=== PATIENT | female | born 1940 | race Caucasian/White ===

== ENCOUNTER 2021-11-05 02:38 | Emergency (ER) | payer OTHER, SELFPAY ==
[2021-11-05 02:39] VITALS: BP 151/95; PULSE 63; RESP 18; TEMP 36.8; O2SAT 98; BMI 24.4
--- NOTE | 2021-11-05 02:48 | CRLHL7_ITS ---
For Patients: As a result of the Century Cures Act, medical imaging exams and procedure reports are released immediately into your electronic medical record. You may view this report before your referring provider. If you have questions, please contact your health care provider. INDICATION: Chest pain. TECHNIQUE: Chest 2 views. COMPARISON: None. FINDINGS: Cardiovascular and mediastinum: Heart size and vasculature are normal in caliber and appearance. Lungs and pleural spaces: Lungs are clear. No sign of infiltrate or mass. No sign of pleural effusion. No pneumothorax. Bones and soft tissues: No significant findings. IMPRESSION: No acute or significant findings. Dictated by Slim Gomes MD @ 11/05/2021 3:44:15 AM (Electronically Signed)
--- NOTE | 2021-11-05 03:13 | ED.CHESTPAIN ---
HPI - Chest Pain General Time Seen by Provider: 03:13 Date Seen: 11/05/21 Chief Complaint: Chest Pain Stated Complaint: Chest Pain Time Seen by Provider: 11/05/21 02:41 Source: patient Mode of arrival: EMS Limitations: no limitations History of Present Illness HPI narrative: Patient is a very nice 81-year-old female presents by EMS after approximately 4-5 hours of chest pain. Came on when after she went to bed, described bilaterally in both the right and left side of her chest. Not so bad, but enough to worry your in the context of previous PTCA 5 years ago and recent hospitalization in early part of September at [facility] for extensive left leg DVT that required both anticoagulation and placement of IVC filter. She took nitroglycerin once at approximately 10:30 p.m. found this did not do anything for her pain, did not call the ambulance till proximally 2am and once the ambulance came to her place her pain went away. She had been having trouble with some nausea after starting the Eliquis, this improved with the Pepcid. She notes that she has taken both her Eliquis and her aspirin, she is due to meet with cardiology and also Interventional Radiology coming up here shortly. MD complaint: chest heaviness Pertinent past history: coronary artery disease and [employer] Onset (ago): hour(s) (5 hrs ago ) Prior episodes: No Onset: during rest Pain location: left chest, right chest and lateral Pain radiation: none Severity: mild Quality: aching and heaviness Relieving factors: nothing and nitroglycerin (took ntg once, did not help ) Exacerbating factors: nothing Context: history of DVT/PE Treatment prior to arrival: nitroglycerin Risk Factors Thoracic aortic dissection risk factors: none Pulmonary embolism risk factors: history of deep vein thrombosis and presence of IVC filter Related Data On Oral Contraceptives: No Home Medications Medication Instructions Recorded Confirmed citalopram 40 mg tablet mg 11/05/21 evolocumab 140 mg/mL subcutaneous mg SUBCUT 11/05/21 pen injector (Dani Deleon) ezetimibe 10 mg tablet mg 11/05/21 fluorouracil 5 % topical cream applic TOPICAL 11/05/21 levothyroxine 112 mcg tablet mcg 11/05/21 lisinopril 5 mg tablet mg 11/05/21 metoprolol succinate 25 mg mg PO 07/25/22 tablet,extended release 24 hr nitroglycerin 0.4 mg sublingual mg 11/05/21 tablet Allergies Allergy/AdvReac Type Severity Reaction Status Date / Time No Known Drug Allergies Allergy Verified 11/05/21 02:43 Review of Systems Status of ROS Reports: 10 or more systems reviewed and unremarkable except as noted in History and below [facility] Social History Smoking Status: Current every day smoker How often do you have a drink containing alcohol: 2-3 times a week How many standard drinks containing alcohol do you have on a typical day: 1 or 2 How often do you have six or more drinks on one occasion: Never AUDIT-C Alcohol total score: 3 Non-prescribed substance use: denies use Exam Const Vital Signs, click to edit/add: Vital Signs - 24 hr 11/05/21 02:39 11/05/21 03:26 11/05/21 04:00 Temperature 98.3 F Pulse Rate [Left Pulse Oximeter] 63 64 62 Respiratory Rate 18 16 16 Blood Pressure [Right Upper Arm] 151/95 H 157/78 H 149/87 H Pulse Oximetry 98 96 93 11/05/21 05:00 11/05/21 06:00 Temperature Pulse Rate [Left Pulse Oximeter] 69 67 Respiratory Rate 16 16 Blood Pressure [Right Upper Arm] 143/97 H 151/88 H Pulse Oximetry 99 98 Documenting provider has reviewed patient's vital signs: yes Common normals: no apparent distress, average body habitus, oriented x3, no limitations, healthy appearing and alert General appearance: comfortable, well kempt and well developed [facility] Common normals: normocephalic, head/scalp atraumatic, hearing grossly normal bilaterally, external ears normal, EAC's normal, TM's normal bilaterally, external nose normal, nasal mucous membranes and turbinates normal, moist oral mucous membranes, oropharynx normal, dentition normal and gingiva normal Head and scalp: normocephalic and atraumatic Nose: external nose normal and nasal mucous membranes and turbinates normal External ear: external ears normal External auditory canal: EAC's normal Tympanic membrane: TM's normal bilaterally Mouth: oral and palatal mucosa normal Eye Common normals: PERRL, EOMs intact bilaterally, conjunctivae normal, no scleral icterus, no papilledema, normal visual murry by confrontation and fundi normal bilaterally Conjunctiva: conjunctiva(e) normal Pupil: PERRL Direct Ophthalmoscopy: no papilledema and fundi normal bilaterally Neck & C-Spine Common normals: full ROM, no lymphadenopathy, supple, no meningeal signs, no JVD, thyroid normal and no carotid bruits General: no JVD Thyroid: thyroid normal Chest Common normals: inspection of chest normal, palpation of chest normal, inspection of breasts normal and palpation of breasts normal Resp Common normals: normal respiratory effort, no retractions, no use of accessory muscles, clear to auscultation bilaterally and percussion normal Auscultation: clear to auscultation bilaterally Percussion: percussion normal Cardio Common normals: no JVD, regular rate, regular rhythm, S1 normal heart sound, S2 normal heart sound, no gallops, no clicks, no murmurs, no rub and peripheral pulses 2+ throughout Jugular venous distention: no JVD and no other Rate: regular rate Rhythm: regular rhythm Heart sounds: S1 normal and S2 normal Peripheral pulses: pulses 2+ throughout GI Common normals: Normal to inspection, nondistended, normoactive bowel sounds present, soft to palpation, non-tender, no hepatosplenomegaly, no masses and no bruits Palpation: soft and no hepatosplenomegaly Common normals: no CVA tenderness Bladder/kidney exam: no CVA tenderness Back & Pelvis Common normals: no CVA tenderness, thoracic and lumbar spine normal to inspection, no thoracic nor lumbar tenderness, thoraco-lumbar ROM normal and straight leg raise negative bilaterally Extremity Common normals: normal to inspection, full ROM, normal capillary refill, no joint enlargement, no clubbing, cyanosis or edema, no calf tenderness and no pedal edema General: normal exam except as noted Neuro Common normals: oriented x3 Sensorium/orientation: alert Meningeal signs: no meningeal signs Psych Appearance: well kempt Skin Common normals: no rashes or lesions noted, no wounds, skin turgor normal, no jaundice, no petechiae and no mottling General skin exam: no rashes or lesions noted and turgor normal Course Course Hospital Course: Patient remained pain-free throughout his hospital course 2 troponins were done and the 1st 1 was 0.04 and the 2nd 1 was 0.01, doing a negative delta of 0.03. This is very reassuring, she remained again pain-free during the course. I did not check a D-dimer as this would be unhelpful given the presentation, but I did not see any evidence of right ventricular dilatation or other signs on my point of care ultrasound. I think it would be reasonable to discharge her home at this point. She has an appointment with cardiology in the next 10 days, I have asked her to bring up fact of the chest pain with them and perhaps of imaging test will be needed. We went over signs and symptoms of worsening condition and she will re-presented here. Vital Signs Vital signs: Initial Vital Signs Temperature 98.3 F 11/05/21 02:39 Temperature Source Temporal Artery Scan 11/05/21 02:39 Pulse Rate 63 11/05/21 02:39 Respiratory Rate 18 11/05/21 02:39 Blood Pressure 151/95 H 11/05/21 02:39 Blood Pressure Mean 113 11/05/21 02:39 Blood Pressure Position Supine 11/05/21 02:39 Pulse Oximetry 98 11/05/21 02:39 Oxygen Delivery Method 11/05/21 02:39 Vital Signs Temperature 98.3 F 11/05/21 02:39 Pulse Rate 63 11/05/21 02:39 Respiratory Rate 18 11/05/21 02:39 Blood Pressure 151/95 H 11/05/21 02:39 Pulse Oximetry 98 11/05/21 02:39 Temperature 98.3 F 11/05/21 02:39 Pulse Rate 67 11/05/21 06:00 Respiratory Rate 16 11/05/21 06:00 Blood Pressure 151/88 H 11/05/21 06:00 Pulse Oximetry 98 11/05/21 06:00 MDM - Chest Pain MDM Narrative Medical decision making narrative: During the evaluation of this patient I considered multiple differential diagnosis is. The life-threatening differential diagnosis include coronary disease/OR, pulmonary embolism, pneumothorax, pneumonia, and aortic dissection. Other differential diagnosis included but were not limited to pericarditis, myocarditis, chest wall pain, GERD, esophageal rupture, rib fracture contusion, pleurisy, as well as other etiologies. Differential Diagnosis Differential diagnosis: Likely fracture of rib, pneumothorax, stable angina, unstable angina pectoris, atypical chest pain, st elevation myocardial infarction, costochondritis, chest pain and biliary colic Medical Records Data Attestation: I reviewed the patient's medical records. Medical records narrative: I reviewed the recent visit to see her primary care physician. Lab Data Attestation: I reviewed the patient's lab results. Labs: Lab Results 11/05/21 11/05/21 11/05/21 Range/Units 03:15 03:18 03:18 WBC 8.82 (4.50-11.00) K/uL RBC 4.01 (4.00-5.20) m/uL Hgb 13.4 (12.0-16.0) gm/dL Hct 40.9 (33.0-51.0) % MCV 102 H (80-100) fL MCH 33 (26-34) pg MCHC 33 (32-36) gm/dL RDW Coeff of Shoaib 13.2 (11.5-15.5) % Plt Count 323 (140-440) K/uL Neut % (Auto) 51.6 (42.0-72.0) % Lymph % (Auto) 31.1 (20-44) % [place] % (Auto) 6.6 (0.0-11.0) % Eos % (Auto) 10.1 H (0.0-7.0) % Baso % (Auto) 0.5 (0.0-3.0) % Neut # (Auto) 4.56 (1.7-7.0) K/uL Lymph # (Auto) 2.74 (0.90-2.90) K/uL [place] # (Auto) 0.60 (0.00-0.90) K/UL Eos # (Auto) 0.90 H (0.00-0.50) K/uL Baso # (Auto) 0.04 (0.00-0.30) K/uL Abs Immat Gran (auto) 0.01 (0.00-0.30) K/uL INR 1.09 (0.91-1.10) APTT 31 (23-33) Seconds Sodium (135-149) mmol/L Potassium (3.6-5.1) mmol/L Chloride (96-114) mmol/L Carbon Dioxide (20-32) mmol/L BUN (7-30) mg/dL Creatinine (0.5-1.5) mg/dL Estimated Creat Clear Estimated GFR ml/min Glucose (60-115) mg/dL Calcium (8.4-10.6) mg/dL NT-Pro-B Natriuret Pep (0-450) PG/mL SARS-CoV-2 (PCR) Negative SARS-CoV-2 (Negative) POC Troponin I (0.01-0.04) ng/ml 11/05/21 11/05/21 11/05/21 Range/Units 03:18 03:19 06:30 WBC (4.50-11.00) K/uL RBC (4.00-5.20) m/uL Hgb (12.0-16.0) gm/dL Hct (33.0-51.0) % MCV (80-100) fL MCH (26-34) pg MCHC (32-36) gm/dL RDW Coeff of Shoaib (11.5-15.5) % Plt Count (140-440) K/uL Neut % (Auto) (42.0-72.0) % Lymph % (Auto) (20-44) % [place] % (Auto) (0.0-11.0) % Eos % (Auto) (0.0-7.0) % Baso % (Auto) (0.0-3.0) % Neut # (Auto) (1.7-7.0) K/uL Lymph # (Auto) (0.90-2.90) K/uL [place] # (Auto) (0.00-0.90) K/UL Eos # (Auto) (0.00-0.50) K/uL Baso # (Auto) (0.00-0.30) K/uL Abs Immat Gran (auto) (0.00-0.30) K/uL INR (0.91-1.10) APTT (23-33) Seconds Sodium 134 L (135-149) mmol/L Potassium 4.8 (3.6-5.1) mmol/L Chloride 106 (96-114) mmol/L Carbon Dioxide 25 (20-32) mmol/L BUN 18 (7-30) mg/dL Creatinine 1.3 (0.5-1.5) mg/dL Estimated Creat Clear 36.07 Estimated GFR 42 ml/min Glucose 101 (60-115) mg/dL Calcium 9.1 (8.4-10.6) mg/dL NT-Pro-B Natriuret Pep 902 H (0-450) PG/mL SARS-CoV-2 (PCR) (Negative) POC Troponin I 0.04 0.01 (0.01-0.04) ng/ml Imaging Data Chest x-ray: Attestation: I have reviewed the pertinent imaging results. My impression: Elevation of the right hemidiaphragm, colonic gas, normal heart size no infiltrate, on the lateral x-ray I can see evidence of a Nate filter. Radiologist's impression: Patient: AMRIK MIX Facility: [facility] . Site : 1940 Study: XRay Chest 2 views-11/05/2021 3:18:12 AM Ordering Physician: Taj Stephens Final Report: INDICATION: Chest pain. TECHNIQUE: Chest 2 views. COMPARISON: None. FINDINGS: Cardiovascular and mediastinum: Heart size and vasculature are normal in caliber and appearance. Lungs and pleural spaces: Lungs are clear. No sign of infiltrate or mass. No sign of pleural effusion. No pneumothorax. Bones and soft tissues: No significant findings. IMPRESSION: No acute or significant findings. Dictated by Slim Gomes MD @ 11/05/2021 3:44:15 AM (Electronic Signature) ECG Data Attestation: I personally reviewed and interpreted this ECG as follows: ECG interpretation date: 11/05/21 ECG interpretation time: 03:37 Prior ECG tracings: available for review Interpretation: EKG done shows a ventricular rate of 61 normal sinus rhythm right bundle-branch block when compared to previous EKG noted from a stress test of 12/01/2013. There has been really no appreciable change. No acute ST wave changes noted Repeat EKG done for this patient at 6:25 a.m. shows no change from previous. Discharge Plan Discharge Clinical Impression: Chest pain Patient Disposition: Home, Self-Care Condition: Improved Instructions: Chest Pain (ED) Additional Instructions: Home rest I suggest follow-up with your primary care physician in the next 10 days. Consideration of further testing on her heart. Such as the Lexiscan. You could also mention this to the portable trackman in her follow-up , return here if further chest pain Activity Level: No Restrictions Prescriptions: No Action citalopram 40 mg tablet 0RF Label Comments: TAKE ONE TABLET BY MOUTH EVERY DAY fluorouracil 5 % cream TOPICAL 0RF Label Comments: APPLY CREAM ONE DAY PER WEEK TO FACE, CHEST, AND HANDS nitroglycerin 0.4 mg tablet, sublingual 0RF Label Comments: PLACE 1 TABLET UNDER THE TONGUE EVERY 5 MINUTES NEEDED FO CHEST PAIN, IF YOU ARE STILL HAVING CHEST PAIN AFTER 3 DOSES )15 MINUTES), CALL lisinopril 5 mg tablet 0RF Label Comments: TAKE ONE TABLET BY MOUTH EVERY DAY metoprolol succinate 25 mg tablet extended release 24 hr PO 0RF Label Comments: TAKE ONE TABLET BY MOUTH EVERY DAY levothyroxine 112 mcg tablet 0RF Label Comments: TAKE 1 TABLET BY MOUTH DAILY, DUE FOR LABS IN AUGUST AND WILL NEED TO ESTABLISH CARE WITH NEW PROVIDER ezetimibe 10 mg tablet 0RF Label Comments: TAKE ONE TABLET BY MOUTH EVERY DAY Repatha SureClick 140 mg/mL pen injector SUBCUT 0RF Label Comments: INJECT 1 ML SUBCUTANEOUSLY EVERY EVERY 14 DAYS Follow Up/Referrals: Tracy Orosco MD [Primary Care Provider] - Stand Alone Forms: [facility] Info Instructions Procedures Ultrasound Cardiac exam #1: Anatomical areas examined: subxiphoid, parasternal long, parasternal short and apical 4 chamber Indications: chest pain Exam type: limited transthoracic echocardiogram Findings: wall motion abnormalities and other (Globally decreased wall motion. Possibly chronic) Impression: negative exam and abnormal wall motion (global)
[2021-11-05 03:26] VITALS: BP 157/78; PULSE 64; RESP 16; O2SAT 96
[2021-11-05 03:31] LABS: Basophils Absolute Auto 0.04 K/uL (0.00-0.30); Basophils Percent Auto 0.5 % (0.0-3.0); Eosinophils Percent Auto 10.1 % (0.0-7.0); Hematocrit 40.9 % (33.0-51.0); Hemoglobin* 13.4 gm/dL (12.0-16.0); Immature Granulocytes Abs Auto 0.01 K/uL (0.00-0.30); Lymphocytes Absolute Auto 2.74 K/uL (0.90-2.90); Lymphocytes Percent Auto 31.1 % (20-44); Mean Corpuscular HGB Conc 33 gm/dL (32-36); Mean Corpuscular Hemoglobin 33 pg (26-34); Mean Corpuscular Volume 102 fL (80-100); Monocytes Percent Auto 6.6 % (0.0-11.0); Neutrophils Absolute Auto 4.56 K/uL (1.7-7.0); Neutrophils Percent Auto 51.6 % (42.0-72.0); Platelet Count* 323 K/uL (140-440); RDW Coefficient of Variation % 13.2 % (11.5-15.5); Red Blood Count 4.01 m/uL (4.00-5.20); White Blood Count* 8.82 K/uL (4.50-11.00)
[2021-11-05 03:32] LABS: Slide Review Reflex No
[2021-11-05 03:37] LABS: Troponin, Point-of-Care* 0.04 ng/ml (0.01-0.04)
[2021-11-05 03:44] LABS: Chloride* 106 mmol/L (96-114); Potassium* 4.8 mmol/L (3.6-5.1); Sodium* 134 mmol/L (135-149)
[2021-11-05 03:47] LABS: Blood Urea Nitrogen* 18 mg/dL (7-30); Calcium* 9.1 mg/dL (8.4-10.6); Carbon Dioxide* 25 mmol/L (20-32); Creatinine* 1.3 mg/dL (0.5-1.5); Est. Creatinine Clearance* 36.07; Estimated Glomerular Filt Rate 42 ml/min; Glucose* 101 mg/dL (60-115); INR 1.09 (0.91-1.10); Partial Thromboplastin Time* 31 Seconds (23-33); Prothrombin Time 14.5 Seconds
[2021-11-05 03:57] LABS: NT Pro B Type NatriureticPept* 902 PG/mL (0-450)
[2021-11-05 04:00] VITALS: BP 149/87; PULSE 62; RESP 16; O2SAT 93
[2021-11-05 04:21] LABS: SARS PCR* Negative SARS-CoV-2 (Negative)
[2021-11-05 05:00] VITALS: BP 143/97; PULSE 69; RESP 16; O2SAT 99
[2021-11-05 06:00] VITALS: BP 151/88; PULSE 67; RESP 16; O2SAT 98
[2021-11-05 06:46] LABS: Troponin, Point-of-Care* 0.01 ng/ml (0.01-0.04)
--- NOTE | 2021-11-05 06:49 | ED.NURSE ---
pt given warm blanket after second 12 lead EKG. Pt returned to sleep.
== END 2021-11-05 07:23 | disposition home or self-care (01) ==
PROVIDERS: Emergency Provider Family Medicine; PCP Family Medicine
DX: R07.9 Chest pain, unspecified (principal)
CPT/HCPCS: 36415; 71046; 80048; 83880; 84484; 85025; 85610; 85730; 87635; 93005; 93308; 99285

== ENCOUNTER 2021-11-20 14:47 | Outpatient (CLI) | payer OTHER, SELFPAY ==
[2021-11-20 21:37] LABS: Albumin* 4.1 g/dL (3.3-5.0); Chloride* 104 mmol/L (96-114)
[2021-11-20 21:38] LABS: Potassium* 4.8 mmol/L (3.6-5.1); Sodium* 136 mmol/L (135-149)
[2021-11-20 21:40] LABS: Alanine Aminotransferase* 8 U/L (4-35); Alkaline Phosphatase* 102 U/L (40-150); Aspartate Amino Transferase* 19 U/L (12-35); Bilirubin Total* 0.2 mg/dL (0.1-1.5); Blood Urea Nitrogen* 13 mg/dL (7-30); Carbon Dioxide* 24 mmol/L (20-32); Creatinine* 1.3 mg/dL (0.5-1.5); Estimated Glomerular Filt Rate 42 ml/min; Total Protein* 6.9 g/dL (6.0-8.3)
[2021-11-20 21:41] LABS: Calcium* 9.2 mg/dL (8.4-10.6); Glucose* 114 mg/dL (60-115); Magnesium* 1.8 mg/dL (1.5-2.6)
== END 2021-11-20 14:48 | disposition home or self-care (01) ==
PROVIDERS: PCP Family Medicine; Visit Provider Family Medicine
DX: R19.7 Diarrhea, unspecified (principal)
CPT/HCPCS: 80053; 83735

== ENCOUNTER 2021-11-21 14:47 | Outpatient (CLI) | payer OTHER, SELFPAY ==
[2021-11-21 17:20] LABS: C.Difficile Negative (Negative); CDIFFEPI 027 PRESUMPTIVE NEGATIVE (Negative)
== END 2021-11-21 14:48 | disposition home or self-care (01) ==
PROVIDERS: PCP Family Medicine; Visit Provider Family Medicine
DX: R19.7 Diarrhea, unspecified (principal)
CPT/HCPCS: 87493

== ENCOUNTER 2022-03-26 12:11 | Outpatient (CLI) | payer OTHER, SELFPAY ==
[2022-03-26 22:47] LABS: Vitamin B12* < 159 pg/mL (243-894)
[2022-03-26 23:22] LABS: Free T4 Free Thyroxine* 0.86 ng/dL (0.70-1.85)
[2022-03-28 23:15] LABS: Folate, Serum 5.1 ng/mL (>=5.9)
== END 2022-03-26 12:12 | disposition home or self-care (01) ==
PROVIDERS: PCP Family Medicine; Visit Provider Family Medicine
DX: R53.83 Other fatigue (principal); D75.89 Other specified diseases of blood and blood-forming organs; E03.9 Hypothyroidism, unspecified; I95.9 Hypotension, unspecified
CPT/HCPCS: 82607; 82746; 84439; 84443

== ENCOUNTER 2022-07-22 10:45 | Outpatient (CLI) | payer OTHER, SELFPAY | END 2022-07-22 10:46 | disposition home or self-care (01) | PROVIDERS: PCP Family Medicine; Visit Provider Family Medicine | DX: E53.8 Deficiency of other specified B group vitamins (principal); E55.9 Vitamin D deficiency, unspecified; I10 Essential (primary) hypertension; R63.4 Abnormal weight loss; R19.7 Diarrhea, unspecified | CPT/HCPCS: 80048; 82607; 84443 ==

== ENCOUNTER 2022-07-23 10:42 | Outpatient (CLI) | payer OTHER, SELFPAY | END 2022-07-23 10:43 | disposition home or self-care (01) | LOC: NFLDREF 07-24 12:31 | PROVIDERS: PCP Family Medicine; Referring Provider Family Medicine; Visit Provider Family Medicine | DX: R19.7 Diarrhea, unspecified (principal); R63.4 Abnormal weight loss | CPT/HCPCS: 87045; 87046; 87077; 87252; 87427; 87493 ==

== ENCOUNTER 2022-11-25 14:12 | Outpatient (CLI) | payer OTHER, SELFPAY | END 2022-11-25 14:13 | disposition home or self-care (01) | LOC: NFLDREF 11-26 20:24 | PROVIDERS: PCP Family Medicine; Referring Provider Family Medicine; Visit Provider Family Medicine | DX: Z01.818 Encounter for other preprocedural examination (principal) | CPT/HCPCS: 87086 ==

== ENCOUNTER 2023-01-30 14:35 | Outpatient (CLI) | payer OTHER, SELFPAY | END 2023-01-30 14:36 | disposition home or self-care (01) | PROVIDERS: PCP Family Medicine; Visit Provider Family Medicine | DX: E03.9 Hypothyroidism, unspecified (principal); R19.7 Diarrhea, unspecified; I49.9 Cardiac arrhythmia, unspecified | CPT/HCPCS: 80053; 84443; 87493 ==

== ENCOUNTER 2023-01-31 15:18 | Outpatient (CLI) | payer OTHER, SELFPAY | END 2023-01-31 15:19 | disposition home or self-care (01) | PROVIDERS: PCP Family Medicine; Visit Provider Family Medicine | DX: R19.7 Diarrhea, unspecified (principal) | CPT/HCPCS: 87045; 87046; 87177; 87209; 87329; 87427; 87493 ==

== ENCOUNTER 2023-11-10 08:45 | Outpatient (CLI) | payer OTHER, SELFPAY | END 2023-11-10 08:46 | disposition home or self-care (01) | PROVIDERS: PCP Family Medicine; Visit Provider Family Medicine | DX: Z00.00 Encounter for general adult medical examination without abnormal findings (principal); E55.9 Vitamin D deficiency, unspecified; E03.9 Hypothyroidism, unspecified; E53.8 Deficiency of other specified B group vitamins | CPT/HCPCS: 80053; 82306; 82607; 84443 ==

== ENCOUNTER 2023-12-11 15:50 | Outpatient (CLI) | payer OTHER, SELFPAY ==
--- NOTE | 2023-12-11 15:00 | CRLHL7_ITS ---
For Patients: As a result of the Century Cures Act, medical imaging exams and procedure reports are released immediately into your electronic medical record. You may view this report before your referring provider. If you have questions, please contact your health care provider. 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 Comparison: 09/07/2020 Findings: No pleural effusion. Noncontrast enhanced liver and gallbladder appear normal. Cardiomegaly. Spleen nonenlarged. Normal adrenal glands. Kidneys are similar. Pancreatic atrophy. Bladder normal. No pelvic mass. Sigmoid diverticulosis. No diverticulitis. Left common iliac vein stent. Ectatic abdominal aorta throughout its course. The proximal abdominal aorta measures up to 4.8 cm, previously measuring up to 4.2 cm. The distal abdominal aorta measures up to 3.8 cm, previously measuring up to 3.7 cm. Multilevel degenerative changes particularly at L4-5 and L5-S1. Degenerative anterolisthesis of L4 on L5. No vertebral body compression fracture. 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 Please note that all CT scans at this facility use dose modulation, iterative reconstruction, and/or weight-based dosing when appropriate to reduce radiation dose to as low as reasonably achievable. Dictated by Juaquin Miranda MD @ 12/12/2023 1:25:27 PM (Electronically Signed)
--- NOTE | 2023-12-11 15:30 | CRLHL7_ITS ---
For Patients: As a result of the Century Cures Act, medical imaging exams and procedure reports are released immediately into your electronic medical record. You may view this report before your referring provider. If you have questions, please contact your health care provider. DXA BONE MINERAL DENSITY STUDY Reason for exam: Osteoporosis. Current height (in): 69.5. Weight (lb): 152. Menopause age: 33. Ethnicity: White. 1. Have you had a previous hip or vertebral fracture? No. 2. Have you had any fractures during your adult life which did not result from significant trauma (e.g., auto accident)? No. 3. Did either of your parents have a hip fracture? No. 4. Do you smoke? No. 5. Have you ever taken Glucocorticoids? No. 6. Do you have rheumatoid arthritis? No. 7. Do you have secondary osteoporosis? No. 8. Do you drink 3 or more alcoholic drinks per day? Yes. 9. Are you being treated for osteoporosis? No. 10. Have you ever taken any of the following medications: Actonel, Evista, Fosamax, Miacalcin, Reclast, Boniva, Forteo, HRT (i.e., estrogen/hormone therapy), Protelos, Prolia, Vitamin D, Calcium, other ??? please specify. ANSWER: No. 11. Do you have any of the following medical conditions: Anorexia or bulimia, asthma or emphysema, end stage renal disease, hyperparathyroidism, any seizure disorders, cancer, inflammatory bowel diseases, hysterectomy, other ??? please specify. ANSWER: Yes, hysterectomy. 12. What was your maximum height (inches)? 70. 13. Do you perform weight bearing exercise regularly? No. 14. Do you regularly consume dairy products? No. 15. Do you drink caffeinated beverages? Yes. 16. At what age did your period start? 16. 17. Are you premenopausal? No. 18. How many full-term pregnancies have you had? 3. 19. Have you ever missed your period for more than 6 months in a row (not including or menopause)? No. TECHNIQUE: Bone mineral density study was performed using the [employer]. FINDINGS: The results of the study expressed as bone mineral density (BMD) are as follows: Lumbar spine L1 to L2: BMD: 0.966 g/cm2. T-score: -0.1. Z-score: 2.5 Neck Left: BMD: 0.661 g/cm2. T-score: -1.7. Z-score: 0.7 Right: BMD: 0.695 g/cm2. T-score: -1.4. Z-score: 1.0 Total Left: BMD: 0.799 g/cm2. T-score: -1.2. Z-score: 1.0 Right: BMD: 0.830 g/cm2. T-score: -0.9. Z-score: 1.3 IMPRESSION: Osteopenia. *Comparison exams done prior to 09/2019 were performed on different unit, [facility]. COMPARISON: Compared with scan of 04/13/2020, the bone mineral density has decreased by 0.7 percent at the spine and decreased by 6.8 percent at the hip. Compared with scan of 10/02/2015, the bone mineral density has increased by 9.9 percent at the spine and decreased by 5.6 percent at the hip. FRAX 10-year Fracture Risk Major Osteoporotic Fracture: 16% Hip Fracture: 5.5% Reported Risk Factors: [place] () Neck BMD=0.661, BMI=22.1, alcohol use. Juaquin Miranda M.D. Diagnostic Radiologist [email or web address] sloan/Dictated by: Juaquin Miranda MD @ 12/12/2023 1:05:00 PM (Electronically Signed)
== END 2023-12-11 15:51 | disposition home or self-care (01) ==
LOC: CT 15:51
PROVIDERS: PCP Family Medicine; Visit Provider Family Medicine
DX: I71.40 Abdominal aortic aneurysm, without rupture, unspecified (principal); M81.0 Age-related osteoporosis without current pathological fracture; M85.89 Other specified disorders of bone density and structure, multiple sites
CPT/HCPCS: 74176; 77080; 83880

== ENCOUNTER 2024-02-05 10:15 | Outpatient (RCR) | payer OTHER, SELFPAY ==
--- NOTE | 2024-01-14 10:37 | PT.OPE ---
[facility] Start: 01/13/24 15:48 Freq: Status: Active Protocol: Document 01/14/24 10:35 HERIBERTO (Rec: 01/14/24 10:37 HERIBERTO [id number]) E-signed By Anup Ascencio PT Physical Therapy Outpatient Evaluation Insurance Information Recert Due Date 04/13/24 Insurance Name Medicare B Medical Diagnosis weakness unspecified abnormalities of gait and mobility Treating Diagnosis Generalized weakness Unspecified abnormalities of gait and mobility Referring Veronica Morrison MD Subjective Preferred Name Faustina Subjective For the past couple of months I have been really wobbly. When I cross the street and I need to step up a curb I need something for my balance. Reports difficulty with walking over uneven ground. recently (08/11/23 ) and she had been taking some antidepressant pills. Has since stopped taking these and feels her balance is getting better. Walking up an incline is very challenging. Pt has used a cane occasionally, but does not present with one today. Pt would lie to improve her balance and strength so that she can walk confidently. Pt reports a fall about 5 months ago. Was taking off a sweater when walking into her room and tripped and hit her head on a nightstand. Had a small cut on her head but notes she was fine otherwise. Pain Comments none Date of Last Physician Visit 12/29/23 Current Work Status Retired Precautions Therapy Limitations/Systems Review Not Limited Objective Other/Pertinent Objective R knee AROM: 0-4-130 L knee AROM: 0-5-130 R hip flexion: 4/5 R knee flexion: 5/5 R knee extension: 5/5 R ankle DF: 4/5 L hip flexion: 4/5 L knee flexion: 5/5 L knee extension: 5/5 L ankle DF: 4/5 4-Stage Balance Test: able to complete stages I-II without difficulty; increased sway noted stage III, unable to perform stage IV for >4 seconds mCTSIB: able to complete all stages; increased sway noted with eyes closed but no LOB; pt did require minimal use of hands with stage IV TU.27 seconds 5 Times Jbj-ms-Klmdq: 22.38 seconds 30-Second Dcq-bv-Zygbg: 6 repetitions Assessment Assessment/Impression Faustina is a very pleasant 84 year old female who presents to our clinic for evaluation and treatment of weakness and balance. While pts scores for MMT tested well this date, I am very concerned with her functional strength at this time. She was only able to complete 6 xoy-ya-gagisc in 30 seconds (age related norm is 9 repetitions), and she clearly struggles to perform each rep as her balance and coordination is very poor. Having said this, I do think she will make gains quickly with practice. Her balance was better than I had anticipated and she was able to stand on one leg for several seconds at a time which is also promising. At this time, I would like Faustina to start by performing several exercises to simply get her moving a bit more and we will progress appropriately as she improves. The nature of the pts condition was explained and all questions were answered to the pts satisfaction. Skilled PT services are medically necessary to address deficits and return patient to highest level of function. Recommend physical therapy sessions 1/ week for 4-6 weeks. Pt agrees with this plan. Printout of HEP was given for I completion and pt gives verbal understanding of each exercise . Primary Functional Limitations Walking, transfers Plan of Care Rehabilitation Potential Good Physical Therapy Goals STG - To be completed in 2-3 weeks: 1. Pt will demo ability to perform TUG in 11 seconds or less as indication of improved functional strength and mobility to reduce risk of falls. LTG - To be completed in 6 weeks: 1. Pt to be I with HEP so that she may I manage progression of symptoms. 2. Pt will demo ability to perform at least 9 sit to stands in 30 seconds as indication of improved functional strength to reduce risk of falls. 3. Pt will demo ability to service captain tandem stance fr at least 30 seconds without LOB to reduce risk of falls. 4. pt will demo ability to approach and step up and down a curb without LOB so that she may return to community ambulation with confidence. Treatment Plan/Direct Interventions Gait Training,Manual Therapy, Neuromuscular Re-ed,Self-Care/ Home Management,Therapeutic Activities,Therapeutic Exercises Frequency/Duration 1/week for 6 weeks Patient Will Be Discharged From Therapy Completion of LTG(s),Skills Plateau,Independent w/HEP, Independently Progressing Evaluation Billing Untimed Code Treatment Minutes 30 PT Eval No Charge No Complexity Low Certification Information Initial Certification Date 01/14/24 Ending Certification Date 04/13/24 Provider Signature Required Yes Provider Signature Shows Agreement With POC & Medical Necessity Physician NPI Number Write NPI# Here Physician Comment/Change : Physician Signature & Date Requested Please Sign/Date Here
== END 2024-05-20 15:16 | disposition home or self-care (01) ==
PROVIDERS: PCP Family Medicine; Visit Provider Family Medicine
DX: R53.1 Weakness (principal); R26.89 Other abnormalities of gait and mobility; Z51.89 Encounter for other specified aftercare
CPT/HCPCS: 97110; 97140; 97161

== ENCOUNTER 2024-06-25 09:53 | Outpatient (CLI) | payer OTHER, SELFPAY ==
[2024-06-25 13:54] LABS: Basophils Absolute Auto 0.05 K/uL (0.00-0.30); Basophils Percent Auto 0.7 % (0.0-3.0); Eosinophils Percent Auto 12.1 % (0.0-7.0); Hematocrit 43.7 % (33.0-51.0); Hemoglobin* 13.9 gm/dL (12.0-16.0); Lymphocytes Absolute Auto 2.11 K/uL (0.90-2.90); Lymphocytes Percent Auto 28.1 % (20-44); Mean Corpuscular HGB Conc 32 gm/dL (32-36); Mean Corpuscular Hemoglobin 34 pg (26-34); Mean Corpuscular Volume 105 fL (80-100); Neutrophils Absolute Auto 3.83 K/uL (1.7-7.0); Neutrophils Percent Auto 51.1 % (42.0-72.0); Platelet Count* 325 K/uL (140-440); RDW Coefficient of Variation % 13.3 % (11.5-15.5); Red Blood Count 4.15 m/uL (4.00-5.20)
[2024-06-25 14:00] LABS: Albumin* 3.7 g/dL (3.3-5.0); Chloride* 103 mmol/L (96-114); Potassium* 5.1 mmol/L (3.6-5.1); Sodium* 136 mmol/L (135-149)
[2024-06-25 14:03] LABS: Alanine Aminotransferase* 10 U/L (4-35); Alkaline Phosphatase* 77 U/L (40-150); Anion Gap 6 mEq/L (7-15); Aspartate Amino Transferase* 19 U/L (12-35); Bilirubin Total* 0.5 mg/dL (0.1-1.5); Blood Urea Nitrogen* 19 mg/dL (7-30); Calcium* 9.1 mg/dL (8.4-10.6); Carbon Dioxide* 27 mmol/L (20-32); Creatinine* 1.4 mg/dL (0.5-1.5); Estimated Glomerular Filt Rate 37 ml/min; Glucose* 94 mg/dL (60-115); Total Protein* 6.4 g/dL (6.0-8.3)
[2024-06-25 14:04] LABS: Slide Review Reflex No
== END 2024-06-25 09:54 | disposition home or self-care (01) ==
LOC: NPINS 09:53
PROVIDERS: PCP Family Medicine; Visit Provider Student in an Organized Health Care Education/Training Program
DX: L30.9 Dermatitis, unspecified (principal)
CPT/HCPCS: 80053; 85025